=== PATIENT | female | born 1980 | race Caucasian/White ===

== ENCOUNTER 2018-10-08 09:14 | Emergency (ER) | payer SELFPAY ==
[~2018-10-08] VITALS: Ht 160 cm; Wt 68.2 kg
[2018-10-08 09:18] VITALS: Ht 160 cm; Wt 68.2 kg
[2018-10-08 09:52] LABS: BASOPHILS 0.3 % (0-2); EOSINOPHILS 3.8 % (0-7); HEMATOCRIT 40.3 % (36.0-48.0); HEMOGLOBIN 13.8 g/dL (12-16); IMMATURE GRANULOCYTES 0.1 % (0-5); LYMPHOCYTES 30.1 % (15-50); MCH 30.6 pg (26.0-34.0); MCHC 34.2 g/dL (31.0-37.0); MCV 89.4 fL (80.0-100.0); MEAN PLATELET VOLUME 10.2 fL (7.4-10.4); NEUTROPHILS 55.7 % (40-80); PLATELET COUNT 281 10x3/uL (130-400); RBC 4.51 10x6/uL (4.00-5.40); RDW 12.6 % (11.5-14.5); WBC 7.2 10x3/uL (4.8-10.8)
[2018-10-08 10:00] LABS: INR 0.99 (0.85-1.17); PROTIME 12.8 SECONDS (11.6-15.0)
[2018-10-08 10:06] LABS: ALBUMIN 3.5 g/dL (3.4-5.0); ANION GAP 12.9 mmol/L (8-16); BILIRUBIN - TOTAL 2.01 mg/dL (0.2-1.3); CALCIUM 8.4 mg/dL (8.5-10.1); CARBON DIOXIDE 24.6 mmol/L (21.0-32.0); CREATININE - SERUM 0.9 mg/dL (0.6-1.3); POTASSIUM - SERUM 3.5 mmol/L (3.5-5.1); PROTEIN - SERUM 6.7 g/dL (6.4-8.2)
[2018-10-08 10:14] LABS: APPEARANCE CLEAR (CLEAR); BILIRUBIN NEGATIVE (NEGATIVE); COLOR YELLOW (YELLOW); GLUCOSE NEGATIVE (NEGATIVE); HCG URINE NEGATIVE (NEGATIVE); KETONE NEGATIVE (NEGATIVE); NITRITE NEGATIVE (NEGATIVE); PROTEIN NEGATIVE (NEGATIVE); SPECIFIC GRAVITY 1.025 (1.005-1.020); UROBILINOGEN NORMAL (NORMAL)
[2018-10-08] MEDS ORDERED: ZOFRAN ODT4 MG/UDTAB PO (12:44)
[2018-10-08 13:22] VITALS: BP 111/74
== END 2018-10-08 13:05 | disposition home or self-care (01) ==
LOC: D.ER 09:14
PROVIDERS: Family Medicine
DX: R11.2 Nausea with vomiting, unspecified (principal); R10.9 Unspecified abdominal pain; R79.89 Other specified abnormal findings of blood chemistry; E80.6 Other disorders of bilirubin metabolism; K76.0 Fatty (change of) liver, not elsewhere classified; K92.1 Melena; F17.200 Nicotine dependence, unspecified, uncomplicated

== ENCOUNTER → 2019-01-09 07:50 | Outpatient (CLI) | payer MEDICAID ==
[2018-10-08 09:18] VITALS: BMI 26.6
[~2019-01-09 07:50] MED LIST: ZOFRAN ODT4 MG/UDTAB PO
[2019-01-09 09:08] LABS: ALBUMIN 3.6 g/dL (3.4-5.0); BILIRUBIN - DIRECT 0.24 mg/dL (0.00-0.30); BILIRUBIN - INDIRECT 0.91 mg/dL (0.00-1.00); BILIRUBIN - TOTAL 1.15 mg/dL (0.2-1.3); PROTEIN - SERUM 6.9 g/dL (6.4-8.2)
[2019-01-10 07:31] LABS: HEPATITIS C ANTIBODY <0.1 S/CO RAT (0.0-0.9)
== END | disposition home or self-care (01) ==
LOC: D.US 07:50
PROVIDERS: Internal Medicine Gastroenterology
DX: R11.2 Nausea with vomiting, unspecified (principal); R12 Heartburn; K76.0 Fatty (change of) liver, not elsewhere classified; R10.30 Lower abdominal pain, unspecified

== ENCOUNTER 2020-03-16 19:36 | Emergency (ER) | payer SELFPAY ==
[~2020-03-16] VITALS: Ht 160 cm; Wt 74.1 kg
[2020-03-16 19:58] VITALS: Ht 160 cm; Wt 74.1 kg
[2020-03-16] MEDS ORDERED: ADDERALL 20 MG20 M1 PO (20:01)
[2020-03-16 21:11] LABS: BASOPHILS 0.3 % (0-2); EOSINOPHILS 1.8 % (0-7); HEMOGLOBIN 13.5 g/dL (12-16); IMMATURE GRANULOCYTES 0.4 % (0-5); LYMPHOCYTES 29.9 % (15-50); MCH 30.8 pg (26.0-34.0); MCHC 32.9 g/dL (31.0-37.0); MCV 93.4 fL (80.0-100.0); MONOCYTES 6.5 % (2-11); NEUTROPHILS 61.1 % (40-80); PLATELET COUNT 333 10x3/uL (130-400); RBC 4.39 10x6/uL (4.00-5.40); RDW 12.7 % (11.5-14.5)
[2020-03-16 21:19] LABS: APTT 24.6 SECONDS (22.8-39.4); INR 0.78 (0.85-1.17); PROTIME 10.9 SECONDS (11.6-15.0)
[2020-03-16 21:22] LABS: CALC OSMOLALITY 276 mosm/kg (275-300); CALCIUM 7.4 mg/dL (8.5-10.1); CARBON DIOXIDE 15.3 mmol/L (21.0-32.0); CHLORIDE - SERUM 103 mmol/L (98-107); CREATININE - SERUM 0.6 mg/dL (0.6-1.3); GLUCOSE 127 mg/dL (74-106); POTASSIUM - SERUM 3.7 mmol/L (3.5-5.1); SODIUM 138 mmol/L (136-145); UREA NITROGEN 10 mg/dL (7-18); eGFR NON AFRICAN AMERICAN > 90 mL/min (90-120)
[2020-03-16 21:39] LABS: ALBUMIN 3.5 g/dL (3.4-5.0); ALKALINE PHOSPHATASE 61 U/L (30-120); BILIRUBIN - TOTAL 0.48 mg/dL (0.2-1.3); CKMB 0.6 U/L (0.0-3.6); CREATINE KINASE 79 UL (21-215); PRO BNP 114 pg/mL (0-125); PROTEIN - SERUM 6.8 g/dL (6.4-8.2)
[2020-03-16 21:42] LABS: ALT (SGPT) 28 U/L (10-68); TROPONIN-I < 0.017 ng/mL (0.000-0.060)
[2020-03-16 23:43] VITALS: BP 123/84
== END 2020-03-16 23:40 | disposition home or self-care (01) ==
LOC: D.ER 19:36
PROVIDERS: Family Medicine
DX: R06.00 Dyspnea, unspecified (principal); J45.909 Unspecified asthma, uncomplicated; Z72.0 Tobacco use

== ENCOUNTER → 2021-01-13 09:59 | Outpatient (CLI) | payer MEDICAID ==
[2020-03-16 19:58] VITALS: BMI 28.9
[~2021-01-13 09:59] MED LIST changes: +ADDERALL 20 MG20 M1 PO
[2021-01-13 11:20] LABS: BILIRUBIN - DIRECT 0.08 mg/dL (0.00-0.30); BILIRUBIN - INDIRECT 0.39 mg/dL (0.00-1.00); BILIRUBIN - TOTAL 0.47 mg/dL (0.2-1.3); PROTEIN - SERUM 7.1 g/dL (6.4-8.2)
== END | disposition home or self-care (01) ==
LOC: D.US 08:00
PROVIDERS: ATTEND Internal Medicine Gastroenterology
DX: K76.0 Fatty (change of) liver, not elsewhere classified (principal)